=== PATIENT | female | born 1960 | race African-American/Black ===

== ENCOUNTER 2018-03-02 09:53 | Outpatient (CLI) | payer BC ==
--- NOTE | 2018-03-02 11:25 | MRI ---
NONCONTRAST ENHANCED MRA IMAGES OF BRAIN: 03/02/2018 COMPARISON: Previous MRA from 02/07/2013. FINDINGS: Noncontrast enhanced MR images demonstrate no evidence of newly developed aneurysms or vascular abnor malities. 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 This area i s not visible on MRA. I do recommend correlation with possible CTA, if there is a desire to visualiz e the coil itself and the adjacent vascular structures. The previously placed endovascular coil is n ot visible on MRA images. IMPRESSION: No newly developed intracranial aneurysm is seen. No definite evidence of recurrence of flow seen in previously coiled aneurysm. POS: [facility]
== END 2018-03-02 09:54 | disposition home or self-care (01) ==
LOC: TBSIIMAG 09:53
PROVIDERS: ATTEND Neurological Surgery
DX: I67.1 Cerebral aneurysm, nonruptured (principal)
CPT/HCPCS: 70544

== ENCOUNTER 2021-07-28 12:40 | Outpatient (CLI) | payer BC, MEDICARE | END 2021-07-28 12:41 | disposition home or self-care (01) | LOC: BICMRI 12:40 | PROVIDERS: ATTEND Neurological Surgery | DX: I67.1 Cerebral aneurysm, nonruptured (principal) | CPT/HCPCS: 70544 ==